=== PATIENT | female | born 1980 | race Two or more races ===

== ENCOUNTER → 2023-11-27 16:28 | Outpatient (REF) | payer OTHER, SELFPAY | LOC: RAD 16:28 | PROVIDERS: ATTENDING PHYSICIAN Internal Medicine Cardiovascular Disease | DX: R00.1 Bradycardia, unspecified (principal); R42 Dizziness and giddiness; Z01.818 Encounter for other preprocedural examination | CPT/HCPCS: 93971 ==

== ENCOUNTER → 2023-11-28 13:38 | Outpatient (REF) | payer OTHER, SELFPAY | LOC: RCS 13:38 | PROVIDERS: ATTENDING PHYSICIAN Internal Medicine Cardiovascular Disease; FAMILY PHYSICIAN Emergency Medicine | DX: R42 Dizziness and giddiness (principal); R00.1 Bradycardia, unspecified; Z01.818 Encounter for other preprocedural examination | CPT/HCPCS: 93225; 93226 ==

== ENCOUNTER 2023-11-29 05:19 | Emergency (ER) | payer OTHER, SELFPAY ==
[2023-11-29 05:23] VITALS: BP 109/78
[2023-11-29 05:56] LABS: % Basophils 0.4 % (0-2); % Immature Granulocytes 0.4 % (0-0.5); % Lymphocytes 28.3 % (20.5-51.1); % Monocytes 6.6 % (1.7-9.3); % Neutrophils 63.3 % (42.2-75.2); Absolute Eosinophils 0.1 10^3/uL (0-0.7); Absolute Lymphocytes 1.9 10^3/uL (1.2-3.4); Absolute Monocytes 0.4 10^3/uL (0.1-0.6); Absolute Neutrophils 4.2 10^3/uL (1.4-6.5); Hemoglobin 14.2 g/dL (12.0-16.0); Mean Corp Hgb Conc. 34.6 g/dL (33.0-37.0); Mean Corpuscular Hgb 28.8 pg (27.0-31.0); Mean Corpuscular Volume 83.2 fL (81.0-99.0); Mean Platelet Volume 9.6 fL (7.4-10.4); Nucleated Red Blood Cells % 0 %; Platelet Count 304 10^3/uL (130-400); Red Blood Cell Count 4.93 10^6/uL (4.20-5.40); Red Cell Dist. Width 13.7 % (11.5-14.5); White Blood Cell Count 6.7 10^3/uL (4.8-10.8)
[2023-11-29 06:09] LABS: ALT (SGPT) 18 U/L (0-35); AST (SGOT) 18 U/L (14-36); Albumin 4.2 g/dl (3.5-5.0); Alkaline Phosphatase 65 U/L (38-126); Blood Urea Nitrogen 13 mg/dl (7-17); Calcium 9.8 mg/dl (8.4-10.2); Carbon Dioxide 24 mmol/L (22-30); Chloride 106 mmol/L (98-107); Glucose 118 mg/dl (70-99); Sodium 140 mmol/L (135-145); Total Bilirubin 0.6 mg/dl (0.2-1.3); eGFR > 60.00
--- NOTE | 2023-11-29 06:24 | ED.GENMED ---
History of Present Illness
General
Chief Complaint: Dizziness
Time Seen by Provider: 11/29/23 06:24
Travel History
Have you had any contact with someone who has COVID-19?: No
Do you have any symptoms of coronavirus? Fever > 100 degrees, chills, cough, shortness of breath, sore throat, loss of taste or smell, muscle aches, or headache?: No
History of Present Illness
History of Present Illness:
HPI: The patient presents with vertiginous symptoms over the past 10 days. Over the past night, the patient had worsening dizziness. There has been no nausea or vomiting. She does report some vague discomfort with sensation of 'movement' in the
back of the head as well.
EXAM:
GENERAL: Well appearing in no distress
HEENT: Moist oral mucosa
CARDIOVASCULAR: No murmurs, normal heart rate and rhythm, No chest wall tenderness
PULMONARY: No respiratory distress, breath sounds are clear and equal
ABDOMEN: Soft with no peritoneal signs, no tenderness
NEUROLOGIC: Excellent strength all extremities, no coordination deficits, excellent [id number] testing
PSYCHIATRIC: Appropriate mental status, normal insight and judgement
EXTREMITIES: Nontender, no edema, moves all extremities equally
SKIN: No rash, no lesions
ED COURSE:
6:30 AM: I initially evaluated patient
NUMBER AND COMPLEXITY OF PROBLEMS ADDRESSED AT THE ENCOUNTER
� Chronic conditions affecting care: No significant past medical history
� Acute Exacerbation and/or Progression of Chronic Illness: This is an acute problem over the past 10 days
� Differential Diagnosis includes: Positional vertigo, MANAGER PHOTOGRAPHY etiology/central vertigo, electrolyte abnormality, anemia
AMOUNT AND/OR COMPLEXITY OF DATA TO BE REVIEWED AND ANALYZED
� I performed an independent evaluation of and my interpretation is:
EKG: Sinus 62, nonspecific ST abnormality with no old EKG to compare
CT: CT imaging personally reviewed and I did review the radiologist interpretation as well.
X-rays:
Laboratory Studies: White count, hemoglobin normal, chemistries unremarkable
Other:
� Review of other/old records: The patient had an ultrasound of the left lower extremity that was negative for DVT on 11/27/2023
� Clinical information was obtained by an independent historian: I spoke to the at bedside
� Prescriptions/Medications Considered but not given:
� Further testing considered but not performed: Considered MRI however the patient will likely have this done through neurology as an outpatient
RISK OF COMPLICATIONS AND/OR MORBIDITY OR MORTALITY OF PATIENT MANAGEMENT
� Social determinants of health affecting care: Lives at home
� Discussion with other providers:
� Escalation of care including admission/observation vs risk of discharge considered: The patient is well-appearing with unremarkable neurologic examination. However given worsening symptoms that have been worsening relatively
rapidly will obtain CT imaging more urgently today. Labs are unremarkable. She does have follow-up with cardiology with echo today and review of Holter monitoring. I discussed the case with Dr. Bales given the patient's CT finding per radiology.
The patient has a nonfocal neurologic examination. Dr. Bales evaluated the patient in the ED and recommends outpatient vestibular rehab/physical therapy which I have given her prescription. He will also follow-up with her as an outpatient and
will likely arrange for MRI as an outpatient. I reassessed patient at 9:40 AM, she continues to have a normal neurologic examination and has excellent mental status.
Phy Exam
Physical Exam
Physical Exam:
See HPI
Course
Orders/Labs/Results
Orders:
Orders
11/29/23 05:33
ECG [Electrocardiogram (*1)] Urgent
Reason for Study: Vertigo / Dizzy
EKG- Treatment ONCE
11/29/23 05:43
Complete Blood Count/With Diff Urgent
Comprehensive Metabolic Panel Urgent
11/29/23 06:33
CT Head W/o Iv Contrast Urgent
Comment:
Reason For Exam: worsening vertigo; vision change
Abnormal Lab Results
02/08/24
05:43
Glucose 118 H mg/dl
(70-99)
11/29/23 05:43
11/29/23 05:43
Vital Signs
Initial and Last Documented VS:
Initial Vital Signs
Temp Pulse Resp BP Pulse Ox
98.3 F 68 14 109/78 100
11/29/23 05:23 11/29/23 05:23 11/29/23 05:23 11/29/23 05:23 11/29/23 05:23
Last Documented Vital Signs
Temp Pulse Resp BP Pulse Ox
98.3 F 67 19 127/71 97
11/29/23 05:23 11/29/23 09:15 11/29/23 09:15 11/29/23 09:00 11/29/23 09:15
*Critical Care Note
Total Time (30-74mins, 75-104mins- exclusive of procedures): Not Applicable
ED Attending Note
-
Portions of this chart may have been created with voice recognition software.� Occasional wrong word or��sound alike� substitutions may have occurred due to the inherent limitations of voice recognition software.
Discharge Plan
Departure
Patient Disposition: Home (Routine Discharge)
Date of Disposition: 11/29/23
Time of Disposition: 09:31
Patient with high blood pressure during this ER visit?: Yes
Discharge Problem:
Vertigo
Instructions: Vertigo (a Type of Dizziness) (DC), BLOOD PRESSURE
Referrals:
Jovanni Bales MD [Active] - Follow up in 1 week
Jessie Arndt MD [Family Provider] -
Activity Restrictions/Additional Instructions:
You are also seen in the ER by the neurologist, Dr. Bales. I have given you his contact information. I also recommend that you call [phone] to arrange vestibular physical therapy (I have given you a prescription for this).
Interventions
Interventions:
*Risk Screen - Suicide Last Done: 11/29/23 05:23
*General Assessment Last Done: 11/29/23 05:23
*Neglect/Abuse Screening Last Done: 11/29/23 05:23
ED- Fall Risk Assessment Last Done: 11/29/23 05:23
*ED COVID-19 Vaccine History Last Done: 11/29/23 05:23
ED- Neurological Assessment Last Done: 11/29/23 08:07
ED- Cardiac Assessment Last Done: 11/29/23 08:07
[2023-11-29 07:00] VITALS: BP 112/66
[2023-11-29 08:05] VITALS: BP 100/62
[2023-11-29 09:00] VITALS: BP 127/71
--- NOTE | 2023-11-29 12:18 | CON.NEURO4 ---
Consultation - Neurology 4
-
CONSULTING PHYSICIAN: Norberto Bales
REFERRING PHYSICIAN: ER
DICTATED BY: Norberto Bales
DATE/TIME OF REQUEST: 11/29/23
DATE/TIME OF CONSULTATION: 11/29/23
Reason for Consultation: Episodic dizziness
History of Present Illness:
Patient is a 43-year-old right-handed woman with no significant past medical history presenting to the hospital because of dizziness episodes. These had started without any obvious antecedent illness, traumatic injury head injury or health change
around 11/19. At first they were short lasting lasting around just a few minutes, they were clearly episodic with a characterize characterized by a little bit of head movement and dizziness, they did seem to happen almost daily and have continued up
until now and seem to have longer duration at this point. Patient does not notice any obvious hearing change such as tinnitus hearing loss or aural fullness or ear pain. She does feel like there has been some vision change with some blurred vision
but no double vision or vision loss. Patient does feel like the dizziness seems worse with head movements. She does not have any history of headaches with migrainous features of photophobia phonophobia nausea or vomiting or vision change. No
chest pain, sweating, headache with the attacks. No losing consciousness.
In between episodes she does feel normal her walking has felt normal. She has had holter monitor and is getting TTE today, has been seen by cardiology in outpatient setting.
Past Medical History: None
Surgical History: None
Family History: Non-contributory
Social History: Patient is , lives at home and takes care of 2 children, rare alcohol, no tobacco or recreational drugs
Allergies: No known drug allergies
Review of Symptoms:
Patient denies any fever, headache, chest pain, shortness of breath, GI or symptoms.
Physical Exam:
Well-appearing middle-aged woman no distress no signs of head or neck trauma no neck masses no abnormality of cervical spine, eyes clear oropharynx clear, heart rate regular, breathing unlabored, abdomen soft nontender, no lower extremity edema or
rashes seen
Neurologic Examination:
The patient is awake, alert and oriented x 3. She is able to follow commands and answer questions appropriately. There is no aphasia or dysarthria. On cranial nerve assessment, pupils are 3 mm bilateral, round and reactive to light and
accommodation. Visual bustillos are full. Extraocular movements are intact. No abnormal nystagmus seen. Facial sensations are intact and bilaterally symmetrical, there is no facial asymmetry. Hearing is intact bilaterally to normal conversation
volume. Tongue palate and uvula are midline. Sternocleidomastoid strengths are full bilaterally. Motor strengths are 5/5 bilateral upper and lower extremities on medical research [place] scale. There is no drift or involuntary movement noted. Deep
tendon reflexes are 2+ bilateral upper and lower extremities and Babinski is absent bilaterally. Sensations of pain, touch, temperature and vibration are intact and bilaterally symmetrical. There was no extinction noted on double simultaneous
stimulation. Coordination is intact by finger to nose bilaterally. Gait was normal.
Alli hallpike and supine role tests brought on some dizziness but no abnormal nystagmus seen.
Neuro Imaging: CT head no acute abnormalities, no masses, small amount left cerebellar low lying is noted, no compression of brainstem, no other abnormalities in posterior fossa of brain
Impressions
1. Episodic dizziness. Normal inbetween episodes. Alli hallpike maneuver and supline role tests were not able to confirm BPPV which would remain in differential diagnosis. Others can be cardiac rhythm or structural cause, vagal episodes, anxiety
attacks. Unlikely to be vestibular migraine given short duration and no history of migraine type headaches, seems unlikely Meniere's disease.
2. I feel the left low lying cerebellar tonsil is incidental and symptomatic. No features of cough headache, or other brainstem dysfunction that suggest this is symptomatic.
3.
4.
Recommendations:
1. Would recommend outpatient PT and vestibular focused therapy which may help if this is BPPV
2. Continue the cardiac workup
3. Non-urgent MRI of the brain with and without contrast and MRA of the head, would have her see neurology office in follow up in 4 weeks
4. Meclizine can be used as needed 1-2 times a day for symptoms of dizziness
Discussed patient care with: Patient and , ER
== END 2023-11-29 10:11 | disposition home or self-care (01) ==
LOC: EMR 05:19
PROVIDERS: Emergency Medicine; CONSULT PHYSICIAN Student in an Organized Health Care Education/Training Program; EMERGENCY PHYSICIAN Emergency Medicine; FAMILY PHYSICIAN Emergency Medicine
DX: R42 Dizziness and giddiness (principal)
CPT/HCPCS: 99283; 70450; 80053; 85025; 93005; 93306

== ENCOUNTER → 2023-11-29 14:26 | Outpatient (REF) | payer OTHER, SELFPAY | LOC: RCS 14:26 | PROVIDERS: ATTENDING PHYSICIAN Internal Medicine Cardiovascular Disease; FAMILY PHYSICIAN Emergency Medicine | DX: R00.1 Bradycardia, unspecified (principal); R42 Dizziness and giddiness; Z01.818 Encounter for other preprocedural examination | CPT/HCPCS: 93306 ==